=== PATIENT | male | born 1965 | race Caucasian/White ===

== ENCOUNTER 2024-11-27 10:39 | Outpatient (CLI) | payer BC, SELFPAY | END 2024-11-27 10:40 | disposition home or self-care (01) | PROVIDERS: PCP Nurse Practitioner Family; Visit Provider Nurse Practitioner Family | DX: I10 Essential (primary) hypertension (principal); E78.2 Mixed hyperlipidemia; E11.9 Type 2 diabetes mellitus without complications; F41.9 Anxiety disorder, unspecified; Z12.5 Encounter for screening for malignant neoplasm of prostate | CPT/HCPCS: 80053; 80061; 82043; 82570; 82607; 84443; G0103 ==

== ENCOUNTER 2024-12-22 09:37 | Outpatient (CLI) | payer BC, SELFPAY ==
--- NOTE | 2024-12-22 10:39 | W.ANESCHARGE ---
Anesthesia Charges Start Date/Time Anesthesia Start Date: 12/22/24 Anesthesia Start Time: 10:10 Stop Date/Time Anesthesia Stop Date: 12/22/24 Anesthesia Stop Time: 10:37 Coding CPT Codes CPT Codes: DELMAR LWR INTST NDSC NOS - [id number] ([id number]) P2 - PATIENT W/MILD SYST DISEASE, QK - COMPUTER GRAPHIC ARTIST 2-4 CNCRNT ANES PROC, QX - HEATING EQUIPMENT INSTALLER SVC W/ MD MED DIRECTION
--- NOTE | 2024-12-22 10:45 | W.ANESCHARGE ---
Anesthesia Charges Start Date/Time Anesthesia Start Date: 12/22/24 Anesthesia Start Time: 10:10 Stop Date/Time Anesthesia Stop Date: 12/22/24 Anesthesia Stop Time: 10:37 Coding CPT Codes CPT Codes: DELMAR LWR INTST NDSC NOS - [id number] ([id number]) P2 - PATIENT W/MILD SYST DISEASE, QK - EXTENSION COURSE COORDINATOR 2-4 CNCRNT ANES PROC, QX - MANAGER NIGHT SVC W/ MD MED DIRECTION
== END 2024-12-22 09:38 | disposition home or self-care (01) ==
PROVIDERS: PCP Nurse Practitioner Family; Visit Provider Internal Medicine
DX: Z12.11 Encounter for screening for malignant neoplasm of colon (principal); D12.3 Benign neoplasm of transverse colon; D12.2 Benign neoplasm of ascending colon
CPT/HCPCS: 00811; 45380; 88305; J2704

== ENCOUNTER 2025-06-18 15:46 | Outpatient (CLI) | payer BC, SELFPAY | END 2025-06-18 15:47 | disposition home or self-care (01) | PROVIDERS: PCP Nurse Practitioner Family; Visit Provider Nurse Practitioner Family | DX: E78.2 Mixed hyperlipidemia (principal) | CPT/HCPCS: 80061 ==